=== PATIENT | male | born 1980 | race Two or more races ===

== ENCOUNTER 2020-06-22 23:39 | Emergency (ER) | payer SELFPAY ==
[~2020-06-22] VITALS: Ht 185.4 cm; Wt 72.6 kg
[2020-06-22] MEDS ORDERED: LORAZEPAM 1 MG TABLET ONE (23:47)
[2020-06-23] MEDS ORDERED: LORAZEPAM 1 MG TABLET PO ONE
[2020-06-23] MEDS ORDERED: KETAMINE HCL (500MG/10ML) 50 MG/ML VIAL ONE (00:13)
--- NOTE | 2020-06-23 00:20 | NUR ---
PT MEDICATED ORDERED BY DR DODGE
[2020-06-23] MEDS ORDERED: KETAMINE HCL (500MG/10ML) 50 MG/ML VIAL IM ONE (00:30)
--- NOTE | 2020-06-23 01:32 | NUR ---
PT SLEEPING IN [facility]. NO SIGNS OF DISTRESS NOTED. WILL CONT TO MONITOR PT.
[2020-06-23] MEDS ORDERED: CEPH500C2 PO (04:53)
[2020-06-23 06:04] VITALS: BP 106/59
--- NOTE | 2020-06-23 07:32 | NUR ---
PT AWAKE, [id number], REFUSED TO SIGN ACI AND HOMELESS WAIVER. DISCHARGE IN STABLE CONDITION. ESCORTED BY SECURITY.
== END 2020-06-23 07:34 | disposition home or self-care (01) ==
LOC: ER 23:42
DX: R45.1 Restlessness and agitation (principal); Z48.01 Encounter for change or removal of surgical wound dressing
CPT/HCPCS: 96372; 99283; J3490

== ENCOUNTER 2020-07-01 18:12 | Emergency (ER) | payer SELFPAY ==
[~2020-07-01] VITALS: Ht 180.3 cm; Wt 73.5 kg
[~2020-07-01 18:12] MED LIST: CEPH500C2 PO
[2020-07-01 18:22] VITALS: BP 158/89
[2020-07-01] MEDS ORDERED: CEPHALEXIN MONOHYDRATE 500 MG CAPSULE PO ONE ×2 (19:00→19:07)
[2020-07-01] MEDS ORDERED: BACITRACIN ZINC OINT PACKET 1 EA PACKET TP ONE (19:00)
[2020-07-01] MEDS ORDERED: BACI/NEOM/POLY B OINT PKT 1 UDPKT PACKET ONE (19:07)
[2020-07-01 19:10] LABS: BASOPHILS % (AUTO) 0.5 % (0.0-2.0); EOSINOPHILS % (AUTO) 0.7 % (0.0-6.0); HEMATOCRIT 35 % (39-51); HEMOGLOBIN 11.9 g/dL (13.5-17.5); LYMPHOCYTES % (AUTO) 23.3 % (20.0-44.0); MEAN CORPUSCULAR HGB CONC 34 g/dl (31.0-36.0); MEAN CORPUSCULAR VOLUME 86 fL (80-96); MONOCYTES # (AUTO) 0.6 /CMM (0.1-1.30); MONOCYTES % (AUTO) 14.7 % (2.0-12.0); NEUTROPHILS # (AUTO) 2.6 /CMM (1.8-8.9); NEUTROPHILS % (AUTO) 60.8 % (43.0-81.0); PLATELET COUNT (AUTO) 178 /CMM (150-450); RED BLOOD CELL COUNT(AUTO) 4.06 MIL/uL (4.5-6.0); WHITE BLOOD COUNT (AUTO) 4.3 K/uL (4.3-11.0)
[2020-07-01 19:27] LABS: CALCIUM, SERUM 8.5 mg/dL (8.5-10.1); CARBON DIOXIDE 28 mmol/L (21-32); CHLORIDE 109 mmol/L (98-107); GLUCOSE 129 mg/dL (74-106); POTASSIUM 4.1 mmol/L (3.5-5.1); SODIUM SERUM 143 mmol/L (136-145); UREA NITROGEN, BLOOD 14 mg/dL (7-18)
[2020-07-01 19:33] LABS: ALANINE AMINOTRANSFERASE 48 U/L (12-78); ALBUMIN 3.2 g/dL (3.4-5.0); ALCOHOL, BLOOD < 3 mg/dL (0-0); ALKALINE PHOSPHATASE 67 U/L (46-116); ASPARTATE AMINOTRANSFERASE 52 U/L (15-37); BILIRUBIN,DIRECT 0.1 mg/dL (0.0-0.2); BILIRUBIN,TOTAL 0.3 mg/dL (0.2-1.0); TOTAL PROTEIN, SERUM 5.9 g/dL (6.4-8.2)
[2020-07-01 19:39] LABS: ACETAMINOPHEN < 0 ug/ml (10-30)
[2020-07-01 19:57] LABS: BILIRUBIN,URINE NEGATIVE (NEGATIVE); COLOR,URINE YELLOW (YELLOW); LEUKOCYTE ESTERASE ,URINE NEGATIVE (NEGATIVE); NITRITE, URINE NEGATIVE (NEGATIVE); PROTEIN,URINE NEGATIVE (NEGATIVE); UGLUCOSE NEGATIVE (NEGATIVE); UROBILINOGEN,URINE 0.2 EU/dL (0.2)
[2020-07-01] MEDS ORDERED: QUETIAPINE FUMARATE 100 MG TABLET PO STA (20:35)
[2020-07-01] MEDS ORDERED: diphenhydrAMINE HCL 50 MG/ML VIAL IM ONE (21:00)
[2020-07-01] MEDS ORDERED: HALOPERIDOL LACTATE INJ 5 MG/ML VIAL IM ONE (21:00)
[2020-07-01] MEDS ORDERED: LORAZEPAM INJ 2 MG/ML VIAL IM ONE (21:00)
--- NOTE | 2020-07-02 04:43 | NUR ---
Patient eloped from facility. ER MD notified.
== END 2020-07-02 04:46 | disposition left against medical advice (07) ==
LOC: ER 18:17
DX: S61.205A Unspecified open wound of left ring finger without damage to nail, initial encounter (principal); F29 Unspecified psychosis not due to a substance or known physiological condition; F19.10 Other psychoactive substance abuse, uncomplicated; F31.9 Bipolar disorder, unspecified; F43.10 Post-traumatic stress disorder, unspecified; D64.9 Anemia, unspecified; Z79.899 Other long term (current) drug therapy; Z60.2 Problems related to living alone; X58.XXXA Exposure to other specified factors, initial encounter; Y93.89 Activity, other specified; Y92.89 Other specified places as the place of occurrence of the external cause; Y99.8 Other external cause status
CPT/HCPCS: 36415; 80048-TC; 80076-TC; 85025-TC; G0480